=== PATIENT | female | born 1940 | race African-American/Black ===

== ENCOUNTER 2017-04-27 08:40 | Day surgery (SDC) | payer OTHER ==
[~2017-04-27] VITALS: Ht 154.9 cm; Wt 81.6 kg
[2017-04-27] VITALS (9 sets, daily range): BP systolic 112–142; BP diastolic 67–78
--- NOTE | 2017-04-27 06:50 | Anethesia Preoperative Eval ---
Anesthesia Pre-op PMH/ROS General Date of Evaluation: Apr 27, 2017 Time of Evaluation: 10:27 Anesthesiologist: braxton ASA Score: ASA 3 Mallampati Score Class I : Soft palate, uvula, fauces, pillars visible Class II: Soft palate, uvula, fauces visible Class III: Soft palate, base of uvula visible Class IV: Only hard plate visible Mallampati Classification: Class II Surgeon: rebeca Diagnosis: gerd Surgical Procedure: egd Anesthesia History: none Social History: smoking - former smoker Family History: no anesthesia problems Allergies: Coded Allergies: No Known Allergies (Unverified , 04/26/17) Medications: see eMAR Past Medical History Cardiovascular: Reports: HTN, arrhythmia Pulmonary: Reports: KAILASH Gastrointestinal/Genitourinary: Reports: GERD, other - kidney stones, polyuria Neurologic/Psychiatric: Reports: CVA, other - bilateral lower extremity weakness Endocrine: Reports: DM, hypothyroidism HEENT: Reports: glaucoma PSxH Narrative: breast sx, hysterectomy, thyroidectomy Anesthesia Pre-op Phys. Exam Physician Exam Constitutional: NAD Neurologic: CN 2-12 intact Cardiovascular: RRR Respiratory: CTA Gastrointestinal: S/NT/ND Airway Exam Mallampati Score: Class II MO: full Neck: short TMD: 2fb ROM: limited Teeth: intact Anesthesia Pre-op A/P Risk Assessment & Plan Assessment: asa4 Plan: mac Status Change Before Surgery: No Pre-Antibiotics Drug: RACHEL Blanton Apr 27, 2017 06:50
[~2017-04-27 08:40] MED LIST: AMLODIPINE BESY10 MG ORAL; ATORVASTATIN CA20 MG ORAL; CITALOPRAM HBR20 M1 ORAL; CLOPIDOGREL75 MG ORAL; EYE DROP OP; LEVOTHYROXINE88 MCG ORAL; LR 1000ml 1,000 ML IVLG SCH
[2017-04-27] MEDS ORDERED: LR 1000ml 1,000 ML IVLG SCH (10:13)
[2017-04-27] MEDS ORDERED: Atropine Inj 1mg/10ml Syr IV PRN (10:15)
[2017-04-27] MEDS ORDERED: DiphenhydrAMINE 50mg/ml Inj IVP PRN (10:15)
[2017-04-27] MEDS ORDERED: fentaNYL 100 mcg/2 mL IV PRN (10:15)
[2017-04-27] MEDS ORDERED: Midazolam 2mg/2ml Inj IVP PRN (10:15)
--- NOTE | 2017-04-27 10:35 | Short Stay Surgery H&P ---
History of Present Illness History of Present Illness Chief Complaint Abdominal pains/GERDS HPI Luz Schaffer is a 77 year old female who was admitted on for GERD/abdominal pains Patient History Allergies: Coded Allergies: No Known Allergies (Unverified , 04/26/17) PAST MEDICAL HISTORY: (1) Hypothyroid (2) CVA (cerebral vascular accident) (3) CAD (coronary artery disease) (4) Diabetes (5) Hyperlipidemia Past Surgeries: (1) History of thyroid surgery (2) H/O knee surgery Social History: Medication History Scheduled Amlodipine Besylate* (Amlodipine Besylate*), 10 MG ORAL DAILY, (Reported) Atorvastatin Calcium* (Atorvastatin Calcium*), 20 MG ORAL BEDTIME, (Reported) Citalopram Hydrobromide* (Citalopram Hbr*), 20 MG ORAL QHS, (Reported) Clopidogrel* (Clopidogrel*), 75 MG ORAL DAILY, (Reported) Levothyroxine Sodium* (Levothyroxine Sodium*), 88 MCG ORAL DAILY, (Reported) [Eye Drop], 2 DROP OP BID, (Reported) Review of Systems Cardiovascular: Reports: no symptoms Respiratory: Reports: no symptoms Skeletal: Reports: trauma Gastrointestinal: Reports: gastro esophageal reflux disease Genitourinary: Reports: no symptoms Neurologic: Reports: no symptoms Endocrine: Reports: diabetes - type 2 Hematologic: Reports: no symptoms Physical Exam Skin: normal HENT: normal Heart: normal Lungs: normal Abdomen: abnormal Extremities: normal Genitourinary: normal Plan Plan of Care Upper GI endoscopy with biopsy Preop Interventions None. Summary of Findings See the report Final Diagnosis: Attestation Are the patient's medical conditions optimized for surgery? Attestation Response: yes DU TUTTLE Apr 27, 2017 10:35
--- NOTE | 2017-04-27 10:36 | Pre-Procedure Note/Attestation ---
Pre-Procedure Note/Attestation Complete Prior to Procedure Planned Procedure: left Procedure Narrative: Examination of the upper GI tract via endoscopy Indications for Procedure Pre-Operative Diagnosis: R/O peptic ulcer /gastritis. Attestation I attest that I discussed the nature of the procedure; its benefits; risks and complications; and alternatives (and the risks and benefits of such alternatives ), prior to the procedure, with the patient (or the patient's legal pharmacy services representative). I attest that, if there was a reasonable possibility of needing a blood transfusion, the patient (or the patient's legal pharmacy services representative) was given the [facility] standardized written summary, pursuant to the Kostas Martín Blood Safety Act ([place] Health and Safety Code # 1645, as amended). I attest that I re-evaluated the patient just prior to the surgery and that there has been no change in the patient's H&P, except as documented below: PARAG,SAID Apr 27, 2017 10:36
--- NOTE | 2017-04-27 11:06 | Endoscopy Procedure Note ---
Endoscopy Procedure Note General Indication for Procedure: Abdominal pains/GERDS Procedures Performed: EGD - Small hiatal hernia otherwise normal upper GI endoscopy noted. Random biopsy from antrum obtained. Operative Findings/Diagnosis: Small Hiatal Hernia, otherwise normal. Specimen: yes Pt Tolerated Procedure Well: Yes Estimated Blood Loss: none Anesthesia Anesthesiologist: Dr. Mora Anesthesia: moderate sedation Medications Medication Given: see anesthesia record Inserted Devices Implant(s) used?: No GI Core Measures 50 yrs or older w/o bx or poly: Not Applicable 10yrs. F/U not recommended: Not Applicable If not recommended, why?: Med reason:<3 yrs.: System Reason:<3 yrs.: DU TUTTLE Apr 27, 2017 11:05
--- NOTE | 2017-04-27 11:07 | Discharge Instructions ---
Discharge Instructions Discharge Instructions Follow up with: See the doctor in office after two weeks. For Congestive Heart Failure Reminder Report to your physician any weight gain of 5 pounds or more in one week. DU TUTTLE Apr 27, 2017 11:07
--- NOTE | 2017-04-27 11:56 | Immediate Post-Op Evaluation ---
Immediate Post-Op Evalulation Immediate Post-Op Evalulation Procedure: egd Date of Evaluation: Apr 27, 2017 Time of Evaluation: 11:32 IV Fluids: 350ml lr Blood Products: none Estimated Blood Loss: negligible Blood Pressure Systolic: 126 Blood Pressure Diastolic: 73 Pulse Rate: 66 Respiratory Rate: 18 O2 Sat by Pulse Oximetry: 100 Temperature (Fahrenheit): 98.0 Pain Score (1-10): 0 Nausea: No Vomiting: No Complications none Patient Status: awake, reacts, patent Hydration Status: adequate Drug: RACHEL Blanton Apr 27, 2017 11:56
--- NOTE | 2017-04-27 11:58 | 48 Hour Post Anesthesia Eval ---
Post Anesthesia Evaluation Procedure: egd Date of Evaluation: Apr 27, 2017 Time of Evaluation: 11:34 Blood Pressure Systolic: 119 0: 72 Pulse Rate: 71 Respiratory Rate: 18 Temperature (Fahrenheit): 98.0 O2 Sat by Pulse Oximetry: 100 Airway: patent Nausea: No Vomiting: No Pain Intensity: 0 Hydration Status: adequate Cardiopulmonary Status: stable Mental Status/LOC: patient returned to baseline Post-Anesthesia Complications: none Follow-up care needed: N/A RACHEL THOMAS Apr 27, 2017 11:58
--- NOTE | 2017-04-27 16:45 | Procedure Note ---
DATE OF PROCEDURE: 04/27/2017 SURGEON: Gurdeep Young M.D. PROCEDURE: Esophagogastroduodenoscopy with biopsy. PREOPERATIVE DIAGNOSES: Abdominal pain, gastroesophageal reflux symptoms, rule out nonsteroidal anti-inflammatory drug-induced gastropathy, peptic ulcer disease. POSTOPERATIVE DIAGNOSES: Small hiatal hernia, otherwise, normal upper gastrointestinal endoscopy. Biopsy was taken per random from the antrum. MEDICATIONS USED: Per anesthesiologist Dr. Mora. INSTRUMENT: GIF Olympus upper GI video endoscope. DESCRIPTION OF PROCEDURE: The patient after arriving at the endoscopy unit, was told about risks and benefits of the procedure, which she accepted and signed informed consent. At this time, she was put on the left lateral decubitus position. After adequate IV sedation, the scope was gently passed through the cricopharyngeal area, was lodged into the upper esophagus, gradually advanced towards gastroesophageal junction. The entire esophagus looked normal. There was no evidence of inflammatory process, ulceration, stricture, varices, etc. GE junction also looked normal. However, there was evidence of a small hiatal hernia, but no Garcia's. At this time, the scope was advanced into the stomach. Gastric cavity was distended with insufflation of air. The areas of the fundus and the body and the antrum were examined in table games manager fashion revealing no abnormality. The retroflexion maneuver was also applied. The area of the gastroesophageal junction was examined in a retrograde fashion, which did not reveal any pathology. Finally, a random biopsy from the antral area was obtained and subsequently, the scope was passed through normal looking pylorus. First and second portions of duodenum were found to be completely normal. At this time, the scope was pulled out and the procedure was terminated. The patient tolerated the procedure well and left the endoscopy room in good condition. Gurdeep Young M.D. DR: Praneeth JOB#: [id number] CC:
--- NOTE | 2017-04-27 20:15 | Pre-op HX & Phy Repo 2 SIG ---
DATE OF ADMISSION: 04/27/2017 HISTORY OF PRESENT ILLNESS: The applicant is a 77-year-old female who is being seen prior to undergoing the procedure of upper gastrointestinal endoscopy, for which she has been scheduled to receive evaluation of her gastrointestinal symptoms that she has been suffering subsequent to work injury. The patient is complaining of experiencing pain over the upper part of the abdomen associated with heartburn consistent with gastroesophageal acid reflux. Also, she has been complaining of experiencing nausea and vomiting spells as she had been treated regularly with the medications such as ibuprofen, naproxen, Advil, etc. These medications were given subsequent to her work injury that she suffered, as she was having injuries over the lower back and neck and shoulders along with knees and hip area. She also reports that subsequent to this injury, which was related to work accident while she was working for [employer], she also received surgery on the left knee . The applicant, at this time, denies any history of hematemesis, melena, or difficulty swallowing. She had to stop taking nonsteroidal anti-inflammatory agents. It is important to mention that she has been suffering from significant anxiety as well, which still continues. She did not have any gastrointestinal condition before being injured at the job site. PAST MEDICAL HISTORY: Positive for hypertension, hyperlipidemia, recent CVA, coronary artery disease, diabetes mellitus, and hypothyroid conditions. PAST SURGICAL HISTORY: As I mentioned, work related to the knee. ALLERGIES: Nonsignificant. MEDICATIONS: The patient takes a number of medications at this time for the condition of thyroid and hypertension. HABITS: The patient does not have any habits of drinking alcohol or smoking cigarettes. REVIEW OF SYSTEMS: Basically, history of present illness. PHYSICAL EXAMINATION: GENERAL: Reveals an alert and oriented female, does not seem to be in any acute distress. She looks overweight. VITAL SIGNS: All stable. HEENT: Normocephalic. Pupils equal in size and reactive to light and accommodation. No visible jaundice. Buccal cavity, tongue midline, well hydrated. No ulcers. NECK: Supple. No JVD, thyromegaly, or adenopathy. CHEST: Clear to auscultation and percussion. No rales or rhonchi. HEART: S1 and S2 normal. Regular rhythm. No gallops or murmur. ABDOMEN: There is some mild tenderness over the upper part of the abdomen, which is not significant. Abdomen is obese. No organomegaly noted. EXTREMITIES: No pretibial edema, cyanosis, or clubbing. CENTRAL NERVOUS SYSTEM: Normal. PRELIMINARY PREOPERATIVE IMPRESSION: 1. History of gastroesophageal reflux, nausea and vomiting of uncertain etiology, rule out nonsteroidal anti-inflammatory drug induced gastropathy, peptic ulcer disease, gastritis, and gastroesophageal reflux disease. 2. Anxiety. 3. Hypothyroidism. 4. Hypertension. 5. Diabetes mellitus. 6. Coronary artery disease. 7. History of recent cerebrovascular accident. 8. History of bodily injury, work related. RECOMMENDATION: The applicant seems to be stable at this time to undergo the procedure for upper GI endoscopy, for which she has been scheduled. She understands the risks and benefits and will sign the consent. Said Orly Young DR: ARELI JOB#: [id number] CC:
== END 2017-04-27 13:00 | disposition home or self-care (01) ==
LOC: GAS 08:40
DX: K21.9 Gastro-esophageal reflux disease without esophagitis (principal); K44.9 Diaphragmatic hernia without obstruction or gangrene; F41.9 Anxiety disorder, unspecified; E78.5 Hyperlipidemia, unspecified; I11.9 Hypertensive heart disease without heart failure; E03.9 Hypothyroidism, unspecified; I25.10 Atherosclerotic heart disease of native coronary artery without angina pectoris; E11.9 Type 2 diabetes mellitus without complications; E89.0 Postprocedural hypothyroidism; G47.33 Obstructive sleep apnea (adult) (pediatric); Z87.891 Personal history of nicotine dependence; Z90.710 Acquired absence of both cervix and uterus; Z86.73 Personal history of transient ischemic attack (TIA), and cerebral infarction without residual deficits
CPT/HCPCS: 94003; 94150